=== PATIENT | female | born 2000 | race Caucasian/White ===

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

== ENCOUNTER 2019-01-08 21:00 | Emergency (ER) | payer OTHER ==
[2019-01-08] MEDS ORDERED: Famotidine IV* 10 MG/ML 2 ML (20 mg) IV SLOW PU ONE (21:03)
[2019-01-08] MEDS ORDERED: diPHENhydraMINE IV* 50 MG/ML 1 ml VIAL (BENADRYL) IV ONE (21:03)
[2019-01-08] MEDS ORDERED: methylPREDNISolone 125 MG* 2 ML VIAL IV ONE (21:03)
[2019-01-08] MEDS ORDERED: NS 0.9% 1000 ML** 2,000 ML IV ONE (21:04)
--- NOTE | 2019-01-08 21:53 | ED ---
Allergic Reaction/Systemic - HPI Summary HPI Summary: The patient is a 18 y/o F presenting to [facility] brought in by ambulance with a chief complaint of allergic reaction to dairy products at 2030 tonight. She had eaten at the [employer] and didn't realize that she ate something with milk in it until she got home when her face started to become reddened, and her throat felt tighter. She took 0.25mg Benadryl PO. About an hour later, her symptoms worsened as she was wheezing and her face was more erythematous. She used her EpiPen to some relief, and she presented to the ED. Currently, her symptoms to be resolving as her face is not as red, and she is not wheezing. There is no associated pain. She is allergic to dairy, tree nuts, and shellfish. Previous allergic reactions have been similar to this. - History of Current Complaint Chief Complaint: EDAllergicReaction Time Seen by Provider: 01/08/19 21:05 Hx Obtained From: Patient, EMS Onset/Duration: Sudden Onset, Started hours ago, Still Present - mild now, but symptoms are resolving Timing: Lasting Hours Severity Initially: Severe Severity Currently: Mild Pain Intensity: 0 Pain Scale Used: 0-10 Numeric Character: Swelling - of throat Aggravating Factor(s): Nothing Alleviating Factor(s): Antihistamines - Benadryl, Epinephrine Associated Signs And Symptoms: Positive: Cough Wheezing, Throat Tightening, Other: - erythema of the face - Allergies/Home Medications Allergies/Adverse Reactions: Allergies Allergy/AdvReac Type Severity Reaction Status Date / Time lactase [From Dairy Aid] Allergy Anaphylatic Verified 07/03/18 20:11 Shock shellfish derived Allergy Anaphylatic Verified 07/03/18 20:11 Shock Tree Nuts Allergy Anaphylatic Verified 07/03/18 20:11 Shock Home Medications: Home Medications Albuterol HFA INHALER* [Ventolin HFA Inhaler*] 2 puff INH Q4HR PRN 01/09/19 [ History Confirmed 01/09/19] PMH/Surg Hx/FS Hx/Imm Hx Endocrine/Hematology History: Denies: Hx Diabetes Cardiovascular History: Denies: Hx Congestive Heart Failure Respiratory History: Denies: Hx Asthma Sensory History: Denies: Hx Legally Blind Opthamlomology History: Denies: Hx Legally Blind - Surgical History Surgery Procedure, Year, and Place: none Infectious Disease History: No Infectious Disease History: Denies: Traveled Outside the [place] in Last 30 Days - Family History Known Family History: Positive: Unknown - Patient is not sure of history. - Social History Occupation: Student Alcohol Use: None Hx Substance Use: No Substance Use Type: Reports: None Smoking Status (MU): Never Smoked Tobacco Review of Systems Positive: Other - tightening of throat Positive: Other - wheezing Positive: Other - erythema on face All Other Systems Reviewed And Are Negative: Yes Physical Exam - Summary Physical Exam Summary: Appearance: Well-appearing, Well-nourished, lying in bed comfortably Skin: Warm, dry, no obvious rash, no urticaria Eyes: sclera anicteric, no conjunctival pallor ENT: mucous membranes moist, pharynx appears normal Neck: Supple, nontender Respiratory: Clear to auscultation, no signs of respiratory distress, minimal expiratory wheezing Cardiovascular: Normal S1, S2. No murmurs. Normal distal pulses in tibial and radial bilaterally. Abdomen: Soft, nontender, normal active bowel sounds present Musculoskeletal: Normal, Strength/ROM Intact Neurological: A&Ox3, awake and alert, mentation is normal, speech is fluent and appropriate Psychiatric: affect is normal, does not appear anxious or depressed Triage Information Reviewed: Yes Vital Signs On Initial Exam: Initial Vitals Temp Pulse Resp BP Pulse Ox 100 F 98 14 120/69 96 01/08/19 21:08 01/08/19 21:08 01/08/19 21:08 01/08/19 21:08 01/08/19 21:08 Vital Signs Reviewed: Yes Diagnostics - Vital Signs Vital Signs Temp Pulse Resp BP Pulse Ox 01/08/19 21:10 102 26 120/69 96 01/08/19 21:08 100 F 98 14 120/69 96 - Laboratory Lab Statement: Any lab studies that have been ordered have been reviewed, and results considered in the medical decision making process. Re-Evaluation - Re-Evaluation First Eval Re-Evaluation Time: 21:30 Change: Improved Comment: The patient's symptoms seem to be improving. We will continue to monitor. Allergic Reaction Course/Dx - Course Course Of Treatment: The patient is a 18 y/o F presenting to [facility] brought in by ambulance with a chief complaint of allergic reaction to dairy products at 2030 tonight. Her face reddened and throat tightening, so she took 0.25mg Benadryl PO. About an hour later, her symptoms worsened as she was wheezing and her face was more erythematous so she used her EpiPen. Currently, her symptoms to be resolving as her face is not as red, and she is not wheezing. There is no associated pain. She is allergic to dairy, tree nuts, and shellfish. Previous allergic reactions have been similar to this. Upon physical exam, the patient exhibits minimal expiratory wheezing, no respiratory distress, and no urticaria on skin. In the ED course, the she was given NS, Benadryl, Famotidine, and Solu- Medrol. She is diagnosed with food allergy. She will be discharged home with prescription for Prednisone and follow up with [facility], as well as recommendations for care over the next few days. She agrees with this plan and understands the need for return to the ED for any new or worsening symptoms. - Diagnoses Provider Diagnoses: Food allergy, Anaphylaxis Discharge - Sign-Out/Discharge Documenting (check all that apply): Patient Departure - Patient will be discharged home. Patient Received Moderate/Deep Sedation with Procedure: No - Discharge Plan Condition: Good Disposition: PSYCHIATRIC FACILITY-OTHER Prescriptions: predniSONE TAB* [Deltasone 20 MG TAB*] 40 mg PO DAILY 5 Days #10 tab Patient Education Materials: Food Allergy (ED) Referrals: [facility] [Outside] Additional Instructions: Your symptoms may wax and wane somewhat over the next few days, so make sure to keep benadryl or another antihistamine like claritin or zyrtec on hand and take as needed. If the breathing becomes an issue again, we should see you back here. - Billing Disposition and Condition Condition: GOOD Disposition: Psychiatric Facility Other - Attestation Statements Document Initiated by Sabrina: Yes Documenting Scribe: Muriel Burdick Provider For Whom Sabrina is Documenting (Include Credential): MD Radha Mauriceibmoiz Attestation: Muriel Serrano scribed for Dr. Biju Franks MD on 01/09/19 at 0508. Scribe Documentation Reviewed: Yes Provider Attestation: The documentation as recorded by the Muriel escalante accurately reflects the service I personally performed and the decisions made by me, Dr. Biju Franks MD Status of Scribe Document: Viewed
[2019-01-09 00:35] VITALS: BP 131/92
== END 2019-01-09 00:53 ==
LOC: ED 21:00
DX: T78.07XA Anaphylactic reaction due to milk and dairy products, initial encounter (principal); R21 Rash and other nonspecific skin eruption; R07.0 Pain in throat; R06.2 Wheezing; Z91.011 Allergy to milk products; Z91.018 Allergy to other foods; Z91.013 Allergy to seafood
CPT/HCPCS: 96361; 96374; 96375; 99283; J1200; J2930